=== PATIENT | female | born 1945 | race Caucasian/White ===

== ENCOUNTER 2023-07-14 13:53 | Outpatient (CLI) | payer MEDICARE, OTHER | END 2023-07-14 13:54 | disposition home or self-care (01) | LOC: CSHMAMMO 13:53 | PROVIDERS: ATTEND Internal Medicine | DX: Z53.9 Procedure and treatment not carried out, unspecified reason (principal) ==

== ENCOUNTER 2023-10-04 13:06 | Outpatient (CLI) | payer MEDICARE ==
[~2023-10-04 13:06] MED LIST: Magnevist 469MG/ML 20 ML VIAL ONE
== END 2023-10-04 13:07 | disposition home or self-care (01) ==
LOC: CSHMRI 13:06
PROVIDERS: ATTEND Psychiatry & Neurology Neurology
DX: R55 Syncope and collapse (principal); M51.16 Intervertebral disc disorders with radiculopathy, lumbar region; K11.9 Disease of salivary gland, unspecified; M47.26 Other spondylosis with radiculopathy, lumbar region; M43.16 Spondylolisthesis, lumbar region
CPT/HCPCS: 70553; 72110; 82565; A9579

== ENCOUNTER 2025-03-27 12:44 | Outpatient (CLI) | payer MEDICARE | END 2025-03-27 12:45 | disposition home or self-care (01) | LOC: CSHMAMMO 12:44 | PROVIDERS: ATTEND Internal Medicine | DX: Z12.31 Encounter for screening mammogram for malignant neoplasm of breast (principal); Z80.3 Family history of malignant neoplasm of breast; Z91.89 Other specified personal risk factors, not elsewhere classified | CPT/HCPCS: 77063; 77067 ==